=== PATIENT | female | born 1980 | race Caucasian/White ===

== ENCOUNTER 2020-07-29 03:11 | Emergency (ER) | payer BC, SELFPAY ==
[2020-07-29 03:13] VITALS: BP 116/75; PULSE 69; RESP 18; TEMP 36.8; O2SAT 99
[2020-07-29 03:41] LABS: Basophils Percent Auto 0.4 % (0.2-1.2); Eosinophils Absolute Auto 0.1 K/mm3 (0-0.3); Eosinophils Percent Auto 0.6 % (0-4.4); Hematocrit 38.3 % (37.0-47.0); Hemoglobin 12.9 g/dL (12.0-15.0); Immature Granulocyte Absolute 0.02 K/mm3 (0.00-0.031); Immature Granulocyte Percent A 0.2 % (0-0.5); Lymphocytes Absolute Auto 1.24 K/mm3 (0.9-3.2); Lymphocytes Percent Auto 15.1 % (18.3-44.2); Mean Corpuscular HGB Conc 33.7 g/dl (32-36); Mean Corpuscular Hemoglobin 29.9 pg (26-34); Mean Corpuscular Volume 88.9 fl (80-100); Mean Platelet Volume 9.9 fl (7.4-10.4); Monocytes Absolute Auto 0.6 K/mm3 (0.1-0.6); Monocytes Percent Auto 6.7 % (2.6-8.5); Neutrophils Absolute Auto 6.3 K/mm3 (1.3-6.7); Platelet Count Result 255 k/mm3 (150-375); Red Blood Count 4.31 M/mm3 (4.2-5.4); Red Cell Distribution Width 12.1 % (11.5-14.5); White Blood Count 8.2 K/mm3 (4.5-10.0)
[2020-07-29] MEDS: KETOROLAC 30 MG/ML VIAL (*BKC) IV PUSH (03:51)
[2020-07-29] MEDS: ONDANSETRON INJ 4 MG/2 ML VIAL IV PUSH (03:51)
[2020-07-29 03:59] LABS: Alanine Aminotransferase 16 U/L (4-35); Alkaline Phosphatase 52 U/L (38-126); Anion Gap 4 mmol/L (8-16); Aspartate Amino Transferase 24 U/L (14-36); Bilirubin,Total 0.2 mg/dL (0.2-1.3); Blood Urea Nitrogen 11 mg/dL (7-17); Calcium 8.7 mg/dL (8.4-10.2); Carbon Dioxide 30 mmol/L (22-30); Chloride 101 mmol/L (98-107); Estimated CRCL calculation 99 ml/min; Estimated Glomerular Filt Rate > 60; Glucose 138 mg/dL (65-105); Lipase 224 U/L (23-300); Potassium 3.9 mmol/L (3.4-5.0); Sodium 135 mmol/L (137-145)
[2020-07-29 03:59] LABS: Add Urine Microscopic? YES; Appearance Urine Clear (Clear); Bilirubin Urine Negative (Negative); Blood Urine 2+ (Negative); Color Urine Yellow (Yellow); Glucose Urine UA Negative (Negative); Ketones Urine Negative (Negative); Leukocyte Esterase Ur Negative LEU/UL (Negative); Mucus Urine Rare /lpf; Nitrate Urine Negative (Negative); Protein Urine Negative (Negative); RBC Urine >75 /hpf (0-2); Specific Grav Ur 1.018 (1.001-1.035); Squamous Epithelial Cell Urine Moderate /hpf (Few); Urobilinogen Urine Negative mg/dL (<2.0); WBC Urine 0-3 /hpf
--- NOTE | 2020-07-29 04:02 | ED.ABDPAIN ---
HPI - Abdominal Pain General Chief Complaint: Abdominal Pain Stated Complaint: ABD PAIN Time Seen by Provider: 07/29/20 03:13 Source: patient Mode of arrival: EMS Limitations: no limitations History of Present Illness HPI narrative: This patient is a 40 year old female who presents for evaluation of severe lower abdominal pain. She states she started her menstrual cycle yesterday morning. She has been taking ibuprofen and using a heating pain intermittent today. She reports approximately 3 hours ago her lower abdominal cramping worsened. She had 3 episodes of diarrhea tonight with her severe pain. She denies nausea, vomiting or fever. She denies any urinary symptoms. She states her periods have become heavy recently. She denies history of ovarian cyst or fibroids. She reports her pain is 8/10. Related Data Allergies Allergy/AdvReac Type Severity Reaction Status Date / Time iodine Allergy Unknown Rash Verified 02/13/18 09:07 Penicillins Allergy Unknown Rash Verified 02/13/18 09:07 phenazopyridine Allergy Unknown Verified 07/09/17 06:03 shellfish derived Allergy Unknown Verified 11/07/12 11:17 Sulfa (Sulfonamide Allergy Unknown Rash Verified 02/13/18 09:07 Antibiotics) Review of Systems Review of Systems: All systems reviewed & are unremarkable except as noted in HPI and below PMFSH Past Medical History Medical History (Updated 07/29/20 @ 04:36 by Gladis Lui MD) Patient denies medical problems Surgical History Surgical History (Updated 07/29/20 @ 04:37 by Gladis Lui MD) H/O section History of cholecystectomy Family History Family History (Updated 02/13/18 @ 09:13 by DOCTOR UNKNOWN) Mother Family history of mental disorder Depression Sibling Family history of mental disorder Father Hypertension Family history of diabetes mellitus in first degree relative Other Carcinoma of colon Family history of kidney disease Family history of type 2 diabetes mellitus Social History Social History Smoking status: Never smoker Second hand tobacco smoke exposure: No Smoking end date: 09/18/99 Alcohol intake: current Gender identity (if verbalized by the patient): Female Sexual Orientation (if Verbalized by the Patient): Straight or Heterosexual Exam Const: General: healthy appearing and alert Orientation/consciousness: patient oriented x3 Other: patient appears uncomfortable Eyes: EOM: EOMs intact bilaterally Resp: Effort & Inspection: normal respiratory effort and no retractions Auscultation: clear to auscultation bilaterally Cardio: Rate: regular rate Rhythm: regular rhythm Heart sounds: no murmurs GI: GI Palp: Yes Soft to palpation, Yes Tenderness to palpation present (GI) (suprapubic), No Guarding due to palpation present (GI), No Rigid due to palpation and No Hernia present Auscultation: normal bowel sounds : Other: deferred Back/Spine/Pelvis: Back: no CVA tenderness Skin: General skin exam: normal color Rashes: no rashes Neuro: General: patient oriented x3 and moves all extremities Course Reevaluation(s) Reevaluation #1: PAtient reports her pain is a 0 after being given the Toradol. I discussed labs values with patient. She has normal labs and her pain has resolved. She states she is ready for discharge home. She wants to deferred pelvic exam since her pain has resolved. Date: 07/29/20 Time: 04:21 Vital Signs Vital signs: Vital Signs Temperature 98.3 F 07/29/20 03:13 Pulse Rate 69 07/29/20 03:13 Respiratory Rate 18 07/29/20 03:13 Blood Pressure 116/75 07/29/20 03:13 Pulse Oximetry 99 07/29/20 03:13 Temperature 98.3 F 07/29/20 03:13 Pulse Rate 69 07/29/20 03:13 Respiratory Rate 18 07/29/20 03:13 Blood Pressure 116/75 07/29/20 03:13 Pulse Oximetry 99 07/29/20 03:13 MDM - Abdominal Pain Lab Data Result diagrams: 07/29/20 03:35 07/29/20 03:35 Labs:
[2020-07-29 04:35] VITALS: BP 124/83; PULSE 78; RESP 16; TEMP 36.8; O2SAT 100
== END 2020-07-29 04:36 | disposition home or self-care (01) ==
PROVIDERS: Emergency Provider General Practice; PCP Family Medicine
DX: N94.6 Dysmenorrhea, unspecified (principal)
CPT/HCPCS: 36415; 80053; 81001; 81025; 83690; 85025; 96374; 96375; 99284; J1885; J2405

== ENCOUNTER 2020-11-04 09:19 | Emergency (ER) | payer BC, SELFPAY ==
[2020-11-04] VITALS (7 sets, daily range): BP systolic 112–129; BP diastolic 66–77; PULSE 66–101; RESP 15–20; TEMP 37.1; O2SAT 97–100
--- NOTE | ~2020-11-04 | CT_ITS ---
EXAMINATION: CT abdomen pelvis w con DATE: 11/04/2020 10:12 INDICATION: Right lower quadrant abdominal pain TECHNIQUE: Computed tomography (CT) of the abdomen and pelvis was performed with 100 cc Omnipaque 350 intravenous contrast. Automated exposure control and iterative reconstruction technique were employe d. Exam dose: 474.61 mGy-cm total exam DLP. COMPARISON: 07/30/2016 CT abdomen 04/28/2016 CT abdomen pelvis FINDINGS: The lung bases are clear. Normal heart size. No pericardial or pleural effusion. Status post cholecystectomy. No bile duct or pancreatic duct dilatation. No hepatic, splenic, pancrea tic, and adrenal or renal space-occupying mass lesion. Approximately 4.7 mm nonobstructing lower pole left renal calculus. 3.2 cm left ovarian cyst. The uterus measures approximately 10 cm height and 5 cm anteroposterior dim ension. There is fluid in the endometrial cavity, which measures up to 8 mm AP dimension. The uterus and adnexal areas and urinary bladder otherwise are unremarkable. Normal appendix. No bowel obstruction, bowel wall thickening, pneumatosis or intraperitoneal free air . There is a prominent amount of fecal material in the colon especially on the left. Normal caliber of the abdominal aorta. No intraperitoneal or retroperitoneal or pelvic mass lesion or adenopathy or ascites. Small sliding hiatal hernia. Included skeletal structures are unremarkable. IMPRESSION: Normal appendix 4.7 mm nonobstructing lower pole left renal calculus Status post cholecystectomy 3.2 cm left ovarian cyst Reviewed, dictated and finalized at [facility]. Reviewed, dictated and finalized at [facility]. [employer]
[2020-11-04] MEDS: SODIUM CHLORIDE 0.9% IV 1,000 ML 999 ML IV CONT (09:52)
[2020-11-04] MEDS: FAMOTIDINE 20 MG/2 ML VIAL IV PUSH (09:53)
[2020-11-04 09:57] LABS: Basophils Percent Auto 0.2 % (0.2-1.2); Hematocrit 39.2 % (37.0-47.0); Hemoglobin 13.3 g/dL (12.0-15.0); Immature Granulocyte Absolute 0.04 K/mm3 (0.00-0.031); Immature Granulocyte Percent A 0.3 % (0-0.5); Lymphocytes Absolute Auto 1.17 K/mm3 (0.9-3.2); Lymphocytes Percent Auto 9.2 % (18.3-44.2); Mean Corpuscular HGB Conc 33.9 g/dl (32-36); Mean Corpuscular Hemoglobin 30.3 pg (26-34); Mean Corpuscular Volume 89.3 fl (80-100); Mean Platelet Volume 9.2 fl (7.4-10.4); Monocytes Absolute Auto 0.6 K/mm3 (0.1-0.6); Monocytes Percent Auto 4.9 % (2.6-8.5); Neutrophils Absolute Auto 10.9 K/mm3 (1.3-6.7); Neutrophils Percent Auto 85.4 % (45.5-73.1); Platelet Count Result 286 k/mm3 (150-375); Red Blood Count 4.39 M/mm3 (4.2-5.4); Red Cell Distribution Width 12.1 % (11.5-14.5); White Blood Count 12.7 K/mm3 (4.5-10.0)
[2020-11-04 09:58] LABS: Add Urine Microscopic? YES; Appearance Urine Clear (Clear); Bilirubin Urine Negative (Negative); Blood Urine 1+ (Negative); Color Urine Yellow (Yellow); Glucose Urine UA Negative (Negative); Ketones Urine Negative (Negative); Leukocyte Esterase Ur Negative LEU/UL (Negative); Mucus Urine Rare /lpf; Nitrate Urine Negative (Negative); Protein Urine 1+ mg/dL (Negative); Specific Grav Ur 1.023 (1.001-1.035); Squamous Epithelial Cell Urine Many /hpf (Few); WBC Urine 0-3 /hpf
[2020-11-04 10:08] LABS: Estimated CRCL calculation 86 ml/min; Estimated Glomerular Filt Rate > 60
[2020-11-04 10:10] LABS: Alanine Aminotransferase 19 U/L (4-35); Albumin Level 4.2 g/dL (3.5-5.1); Alkaline Phosphatase 53 U/L (38-126); Anion Gap 4 mmol/L (8-16); Aspartate Amino Transferase 25 U/L (14-36); Bilirubin,Total 0.5 mg/dL (0.2-1.3); Blood Urea Nitrogen 9 mg/dL (7-17); Calcium 8.7 mg/dL (8.4-10.2); Carbon Dioxide 28 mmol/L (22-30); Chloride 104 mmol/L (98-107); Estimated CRCL calculation 86 ml/min; Estimated Glomerular Filt Rate > 60; Glucose 111 mg/dL (65-105); Lipase 112 U/L (23-300); Potassium 4.1 mmol/L (3.4-5.0); Sodium 136 mmol/L (137-145)
--- NOTE | 2020-11-04 12:05 | ED.GENADULT ---
HPI - General Adult General Chief complaint: Abdominal Pain Stated complaint: bladder spasms, abd pain Time Seen by Provider: 11/04/20 09:30 Source: patient Mode of arrival: ambulatory Limitations: no limitations History of Present Illness HPI narrative: Patient is a 40-year-old female who presents with lower abdominal pain that began at 2 AM described as an intense pain localized to the lower abdomen midline may be she might have a urinary tract infection also notes history of diverticulosis and kidney stones. Patient denies any fever chills nausea vomiting. Patient denies vaginal discharge bleeding or hematuria. On arrival patient in no distress patient is not taken anything for her symptoms Related Data Allergies Allergy/AdvReac Type Severity Reaction Status Date / Time Penicillins Allergy Unknown Rash Verified 02/13/18 09:07 phenazopyridine Allergy Unknown Unknown Verified 11/04/20 10:39 shellfish derived Allergy Unknown Unknown Verified 11/04/20 10:39 Sulfa (Sulfonamide Allergy Unknown Rash Verified 02/13/18 09:07 Antibiotics) Review of Systems Review of Systems: All systems reviewed & are unremarkable except as noted in HPI and below PMFSH Past Medical History Medical History Patient denies medical problems Surgical History Surgical History H/O section History of cholecystectomy Family History Family History (Updated 02/13/18 @ 09:13 by DOCTOR UNKNOWN) Mother Family history of mental disorder Depression Sibling Family history of mental disorder Father Hypertension Family history of diabetes mellitus in first degree relative Other Carcinoma of colon Family history of kidney disease Family history of type 2 diabetes mellitus Social History Social History Smoking status: Never smoker Second hand tobacco smoke exposure: No Smoking end date: 09/18/99 Alcohol intake: current Gender identity (if verbalized by the patient): Female Exam Narrative: Exam Narrative: GENERAL: Well-appearing, well-nourished, and in no acute distress. HEAD: Normocephalic, atraumatic. EYES: PERRLA and EOMI. ENT: Nares clear, no rhinorrhea or epistaxis. Mucous membranes moist. CHEST: Clear to auscultation. No respiratory distress. No wheezes rales or rhonchi HEART: Regular rate and rhythm. No murmur heard. Normal peripheral pulses. ABDOMEN: Soft, suprapubic and right lower quadrant tenderness with voluntary guarding, nondistended. EXTREMITIES: Normal range of motion. No edema. SKIN: Warm, dry, no rash. NEURO: No focal deficits. Alert and oriented x3. Cranial nerves II through XII grossly intact PSYCH: Normal mood and affect. Course Course Emergency Course: Patient in the room at this time in no distress has been hydrated given medications with some improvement patient advised to follow with her straight edger and primary care for further evaluation she was explained the findings patient agrees to follow-up as directed and was also given plans to return if symptoms worsen or concerns patient agrees with this Vital Signs Vital signs: Vital Signs Temperature 98.7 F 11/04/20 09:24 Pulse Rate 101 H 11/04/20 09:24 Respiratory Rate 20 11/04/20 09:24 Blood Pressure 117/71 11/04/20 09:24 Pulse Oximetry 100 11/04/20 09:24 Temperature 98.7 F 11/04/20 09:24 Pulse Rate 75 11/04/20 10:53 Respiratory Rate 15 11/04/20 10:53 Blood Pressure 112/66 11/04/20 10:53 Pulse Oximetry 100 11/04/20 10:53 Medical Decision Making [facility] Narrative Medical decision making narrative: Patient presented with lower abdominal pain potential for ovarian cyst as the etiology no other high risk changes in the blood work or imaging leukocytosis likely secondary to stress reaction patient will follow with her straight edger and pr
[2020-11-04] MEDS: KETOROLAC 30 MG/ML VIAL (*BKC) IV PUSH (12:28)
== END 2020-11-04 12:45 | disposition home or self-care (01) ==
PROVIDERS: Emergency Medicine Emergency Medical Services; Emergency Provider Emergency Medicine; PCP Family Medicine
DX: N83.202 Unspecified ovarian cyst, left side (principal); N20.0 Calculus of kidney
CPT/HCPCS: 36415; 74177; 80053; 81001; 81025; 83690; 85025; 96365; 96375; 99284; J0131; J1885; J7030; Q9967

== ENCOUNTER → 2021-01-11 11:58 | Outpatient (CLI) | payer BC, SELFPAY ==
--- NOTE | ~2021-01-11 | US_ITS ---
EXAMINATION: US transvaginal DATE: 01/11/2021 12:20 INDICATION: Follow-up cyst seen on CT. Comparison:CT dated 11/04/2020 TECHNIQUE: Multiple transabdominal and endovaginal sonographic images of the pelvis performed. FINDINGS: The uterus measures 8 x 4.2 x 4.6 cm. The endometrial complex measures 4 mm. The right ovary measures 2.6 x 1.4 x 1.4 cm and the left ovary measures 2.5 x 1.1 x 1.2 cm. There is a 2.1 cm right ovarian cyst. There are small follicles in each ovary. Normal doppler signal in both o varies. There is no free fluid in the pelvis. There are no abnormal masses seen on either side. IMPRESSION: 1. Right ovarian cyst measuring 2.1 cm. Reviewed, dictated and finalized at [facility].
== END ==
PROVIDERS: Visit Provider Obstetrics & Gynecology Gynecology
DX: N83.201 Unspecified ovarian cyst, right side (principal)
CPT/HCPCS: 76830

== ENCOUNTER → 2021-02-05 13:37 | Outpatient (CLI) | payer BC, SELFPAY ==
--- NOTE | ~2021-02-05 | MM_ITS ---
EXAMINATION: MM screening jose BI w santhosh HISTORY: Screening TECHNIQUE: Craniocaudal and mediolateral oblique 3-D tomosynthesis images were obtained and synthetic 2-D images were generated. CAD analysis was submitted and interpreted. COMPARISON: No prior mammogram is available for comparison at this institution. BREAST PARENCHYMAL COMPOSITION: The breasts are heterogeneously dense, which may obscure small masses . FINDINGS: There is no evidence of suspicious mass, calcification, or architectural distortion to sugg est malignancy in either breast. There has been no suspicious interval change. IMPRESSION: 1. No mammographic evidence of malignancy. 2. Recommend routine screening mammography in one year. BI-RADS Category 1: Negative Reviewed, dictated and finalized at [facility].
== END ==
PROVIDERS: PCP Family Medicine; Visit Provider Nurse Practitioner
DX: Z12.31 Encounter for screening mammogram for malignant neoplasm of breast (principal)
CPT/HCPCS: 77063; 77067

== ENCOUNTER 2022-02-01 06:47 | Emergency (ER) | payer BC, SELFPAY ==
[2022-02-01 06:48] VITALS: BP 117/80; PULSE 77; RESP 18; TEMP 36.3; O2SAT 100
[2022-02-01 07:10] LABS: Add Urine Microscopic? YES; Appearance Urine Cloudy (Clear); Bilirubin Urine 1+ (Negative); Blood Urine 3+ (Negative); Color Urine Orange (Yellow); Glucose Urine UA Negative (Negative); Ketones Urine Trace mg/dL (Negative); Leukocyte Esterase Ur 2+ LEU/UL (Negative); Nitrate Urine Negative (Negative); Protein Urine 2+ mg/dL (Negative); Specific Grav Ur >= 1.030 (1.001-1.035)
[2022-02-01 07:15] LABS: RBC Urine >75 /hpf (0-2); Squamous Epithelial Cell Urine Few /hpf (Few); WBC Urine >75 /hpf
--- NOTE | 2022-02-01 08:02 | ED.FEMALEGU ---
HPI - Female Genitourinary General Chief complaint: Urogenital-Female Stated complaint: Bladder infection Time Seen by Provider: 02/01/22 06:57 History of Present Illness HPI Narrative: Patient is a 41-year-old female who presents ER with concerns for UTI. Reports she woke up this morning having urinary frequency and urgency. She is having burning urination as well as hematuria. No flank pain. No fevers or chills or sweats. Mild discomfort. Related Data Home Medications Medication Instructions Recorded Confirmed norethindrone 1 mg-ethinyl 1 tablet PO DAILY 12/07/20 02/04/21 estradiol 20 mcg (24)-iron 75 mg (4) tablet Allergies Allergy/AdvReac Type Severity Reaction Status Date / Time Penicillins Allergy Unknown Rash Verified 02/01/22 07:00 phenazopyridine Allergy Unknown Unknown Verified 02/04/21 10:05 shellfish derived Allergy Unknown Unknown Verified 02/01/22 07:00 Sulfa (Sulfonamide Allergy Unknown Rash Verified 02/01/22 07:00 Antibiotics) Review of Systems Constitutional: Constitutional: Denies chills Comments: No fevers Gastrointestinal: Gastrointestinal: Reports abdominal pain (Suprapubic discomfort), Denies nausea and Denies vomiting Genitourinary: Genitourinary: Reports hematuria, Reports nocturia, Reports dysuria and Denies flank pain PMFSH Past Medical History Medical History Patient denies medical problems Surgical History Surgical History H/O section History of cholecystectomy Family History Family History Mother Family history of mental disorder Depression Sibling Family history of mental disorder Father Hypertension Family history of diabetes mellitus in first degree relative Other Carcinoma of colon Family history of kidney disease Family history of type 2 diabetes mellitus Social History Social History (Updated 02/04/21 @ 10:07 by Aleksandra Candelaria CMA) Smoking status: Never smoker Second hand tobacco smoke exposure: No Smoking end date: 09/18/99 Alcohol intake: current Gender identity (if verbalized by the patient): Female Sexual Orientation (if Verbalized by the Patient): Straight or Heterosexual Spiritual care concerns: No Agree to blood products: Yes Exam Narrative: GENERAL: Well-appearing, well-nourished, and in no acute distress. HEAD: Normocephalic, atraumatic. CHEST: Clear to auscultation. No respiratory distress. HEART: Regular rate and rhythm. Normal peripheral pulses. ABDOMEN: Soft, nontender, nondistended. EXTREMITIES: Normal range of motion. No edema. NEURO: Alert and oriented x3. PSYCH: Normal mood and affect. Course Course Emergency Course: Discharge home with antibiotics. Vital Signs Vital signs: Vital Signs Temperature 97.4 F L 02/01/22 06:48 Pulse Rate 77 02/01/22 06:48 Respiratory Rate 18 02/01/22 06:48 Blood Pressure 117/80 02/01/22 06:48 Pulse Oximetry 100 02/01/22 06:48 Temperature 97.4 F L 02/01/22 06:48 Pulse Rate 77 02/01/22 06:48 Respiratory Rate 18 02/01/22 06:48 Blood Pressure 117/80 02/01/22 06:48 Pulse Oximetry 100 02/01/22 06:48 MDM - Female Genitourinary Lab Data Labs: Lab Results 02/01/22 Range/Units 07:00 Urine Color Jackson H (Yellow) Urine Appearance Cloudy H (Clear) Urine pH 6.0 (5.0-9.0) Ur Specific Confluence >= 1.030 (1.001-1.035) Urine Protein 2+ H (Negative) mg/dL Urine Glucose (UA) Negative (Negative) mg/dL Urine Ketones Trace (Negative) mg/dL Ur Blood (Man) 3+ H (Negative) Urine Nitrate Negative (Negative) Urine Bilirubin 1+ H (Negative) Urine Urobilinogen 1.0 (<2.0) mg/dL Leukocyte Esterase Rfl 2+ H (Negative) LIZBET/UL Urine RBC >75 H (0-2) /hpf Urine WBC >75 H /hpf Ur Squamous Epith Cells Few (Few)
== END 2022-02-01 08:42 | disposition home or self-care (01) ==
PROVIDERS: General Practice; Emergency Provider Emergency Medicine; PCP Family Medicine
DX: N39.0 Urinary tract infection, site not specified (principal)
CPT/HCPCS: 81001; 81025; 87077; 87086; 87088; 99283

== ENCOUNTER → 2022-02-21 13:22 | Outpatient (CLI) | payer BC, SELFPAY ==
--- NOTE | ~2022-02-21 | MM_ITS ---
EXAMINATION: MM screening jose BI w santhosh HISTORY: Screening mammogram TECHNIQUE: Craniocaudal and mediolateral oblique 3-D tomosynthesis images were obtained and synthetic 2-D images were generated. CAD analysis was submitted and interpreted. COMPARISON: 02/05/2021 BREAST PARENCHYMAL COMPOSITION: The breasts are heterogeneously dense, which may obscure small masses . FINDINGS: There is no suspicious mass, calcification, or architectural distortion to suggest malignan cy in either breast. There has been no suspicious interval change. IMPRESSION: 1. No mammographic evidence of malignancy. 2. Recommend routine screening mammography in one year. BI-RADS Category 1: Negative Reviewed, dictated and finalized at location [facility].
== END ==
PROVIDERS: PCP Family Medicine; Visit Provider Nurse Practitioner
DX: Z12.31 Encounter for screening mammogram for malignant neoplasm of breast (principal)
CPT/HCPCS: 77063; 77067

== ENCOUNTER → 2023-07-19 15:28 | Outpatient (CLI) | payer BC, OTHER, SELFPAY ==
--- NOTE | ~2023-07-19 | MM_ITS ---
EXAMINATION: MM screening jose BI w santhosh HISTORY: Screening mammogram TECHNIQUE: Craniocaudal and mediolateral oblique 3-D tomosynthesis images were obtained and synthetic 2-D images were generated. Bilateral rotated lateral CC views. CAD analysis was submitted and interp reted. COMPARISON: 02/21/2022, 02/05/2021 bilateral screening mammogram examinations BREAST PARENCHYMAL COMPOSITION: The breasts are heterogeneously dense, which may obscure small masses . FINDINGS: Stable fibroglandular asymmetry. There is no evidence of suspicious mass, calcification, or architectural distortion to suggest malignancy in either breast. There has been no suspicious interv al change. IMPRESSION: 1. No mammographic evidence of malignancy. 2. Recommend routine screening mammography in one year. BI-RADS Category 1: Negative Reviewed, dictated and finalized at location [facility].
== END ==
PROVIDERS: PCP Family Medicine; Visit Provider Obstetrics & Gynecology Gynecology
DX: Z12.31 Encounter for screening mammogram for malignant neoplasm of breast (principal)
CPT/HCPCS: 77063; 77067

== ENCOUNTER 2024-03-11 01:33 | Emergency (ER) | payer BC, OTHER, SELFPAY ==
[2024-03-11] VITALS (8 sets, daily range): BP systolic 116–135; BP diastolic 68–81; PULSE 71–77; RESP 17–20; TEMP 36.8; O2SAT 97–100
--- NOTE | ~2024-03-11 | CT_ITS ---
Non-contrast CT scan of the Abdomen and Pelvis Clinical indication: Flank pain Technique: 2.5 mm axial scans were obtained through the abdomen and pelvis without intravenous or or al contrast. Dose reduction technique was used on this scan by utilizing automated exposure control a nd iterative reconstruction technique. The dose-length product (DLP) was 528.30 mGy-cm. COMPARISON: 11/04/2020 Findings: Images through the lung bases reveal no abnormalities. 4 mm proximal left ureteral stone is present, with mild left hydronephrosis. No right renal or right ureteral stone. No right hydronephrosis. The liver, spleen, pancreas, and adrenals appear normal. Cholecystectomy clips are present. There is no aortic aneurysm. There is no evidence of bowel obstruction. Normal appendix. Images through the pelvis were performed. There is no evidence of ascites or lymphadenopathy. Urinary bladder unremarkable. No pelvic mass seen. No ascites. Impression: 4 mm proximal left ureteral stone with mild left hydronephrosis. Reviewed, dictated and finalized at [facility]. Impression: 4 mm proximal left ureteral stone with mild left hydronephrosis.
[2024-03-11] MEDS: SODIUM CHLORIDE 0.9% IV 2,000 ML 999 ML IV CONT (02:13)
[2024-03-11] MEDS: ACETAMINOPHEN 500 MG TABLET 1000 MG PO (02:32)
[2024-03-11 02:33] LABS: Basophils Percent Auto 0.4 % (0.2-1.2); Eosinophils Absolute Auto 0.1 K/mm3 (0-0.3); Eosinophils Percent Auto 0.7 % (0-4.4); Hematocrit 40.1 % (37.0-47.0); Hemoglobin 13.6 g/dL (12.0-15.0); Immature Granulocyte Absolute 0.01 K/mm3 (0.00-0.031); Immature Granulocyte Percent A 0.1 % (0-0.5); Lymphocytes Absolute Auto 1.64 K/mm3 (0.9-3.2); Lymphocytes Percent Auto 19.9 % (18.3-44.2); Mean Corpuscular HGB Conc 33.9 g/dl (32-36); Mean Corpuscular Hemoglobin 29.8 pg (26-34); Mean Corpuscular Volume 87.7 fl (80-100); Mean Platelet Volume 9.6 fl (7.4-10.4); Monocytes Absolute Auto 0.5 K/mm3 (0.1-0.6); Monocytes Percent Auto 6.3 % (2.6-8.5); Neutrophils Percent Auto 72.6 % (45.5-73.1); Platelet Count Result 265 k/mm3 (150-375); Red Blood Count 4.57 M/mm3 (4.2-5.4); White Blood Count 8.2 K/mm3 (4.5-10.0)
[2024-03-11 02:35] LABS: Appearance Urine Clear (Clear); Bacteria Urine None Seen /hpf; Bilirubin Urine Negative (Negative); Blood Urine 2+ (Negative); Color Urine Yellow (Yellow); Glucose Urine UA Negative (Negative); Ketones Urine 1+ mg/dL (Negative); Leukocyte Esterase Ur Negative LEU/UL (Negative); Nitrate Urine Negative (Negative); Non Pathogenic Casts 0-2; Protein Urine Negative (Negative); Specific Grav Ur 1.013 (1.001-1.035); Squamous Epithelial Cell Urine Occasional /hpf (Few); Urobilinogen Urine 0.2 mg/dL (<2.0); WBC Urine 0-5 /hpf (0-3)
[2024-03-11 02:36] LABS: Add Urine Microscopic? YES
[2024-03-11 02:45] LABS: Lipase 177 U/L (23-300)
[2024-03-11 02:46] LABS: Alanine Aminotransferase 19 U/L (6-35); Albumin Level 4.1 g/dL (3.5-5.1); Alkaline Phosphatase 60 U/L (38-126); Anion Gap 9 mmol/L (4-12); Aspartate Amino Transferase 21 U/L (14-36); Bilirubin,Total 0.5 mg/dL (0.2-1.3); Blood Urea Nitrogen 13 mg/dL (7-17); Calcium 8.7 mg/dL (8.4-10.2); Carbon Dioxide 20 mmol/L (22-30); Chloride 107 mmol/L (98-107); Estimated CRCL calculation 98 ml/min; Estimated Glomerular Filt Rate > 60; Glucose 115 mg/dL (65-110); Potassium 3.9 mmol/L (3.4-5.0); Sodium 136 mmol/L (137-145)
--- NOTE | 2024-03-11 03:00 | ED.GENADULT ---
HPI - General Adult General Chief complaint: Urogenital-Female Stated complaint: L flank pain Time Seen by Provider: 03/11/24 02:00 History of Present Illness HPI narrative: This is a 43-year-old female presenting with left-sided flank pain. Pain started earlier today. It wraps around into her left lower quadrant. It feels similar to kidney stone she has had in the past. Patient notes increased urinary urgency and frequency but no dysuria. She saw her primary care physician who prescribed her antibiotics for a possible UTI but that has not been helping. Patient denies fevers or chills. She does have some nausea and vomiting. Related Data Home Medications Medication Instructions Recorded Confirmed norethindrone 1 mg-ethinyl 1 tablet PO DAILY 12/07/20 03/07/24 estradiol 20 mcg (24)-iron 75 mg (4) tablet (Aurovela 24 Fe) Allergies Allergy/AdvReac Type Severity Reaction Status Date / Time Penicillins Allergy Unknown Rash Verified 03/11/24 01:56 phenazopyridine Allergy Unknown Unknown Verified 03/11/24 01:56 shellfish derived Allergy Unknown Unknown Verified 03/11/24 01:56 Sulfa (Sulfonamide Allergy Unknown Rash Verified 03/11/24 01:56 Antibiotics) [facility] Past Medical History Medical History Patient denies medical problems Surgical History Surgical History H/O section History of cholecystectomy Family History Family History Mother Family history of mental disorder Depression Sibling Family history of mental disorder Father Hypertension Family history of diabetes mellitus in first degree relative Other Carcinoma of colon Family history of kidney disease Family history of type 2 diabetes mellitus Social History Social History Smoking status: Never smoker Second hand tobacco smoke exposure: No Smoking end date: 09/18/99 Alcohol intake: current Substance use: never Substance use type: does not use Lack of Transportation: No Lack of Food: Never True Current Housing: I Have Housing Concerned About Future Housing: No Difficulty Paying Gas/Electric Bills: No Difficulty Paying for Meds: No Currently Unemployed: No Education: Decline to Answer Difficulty w/ Childcare or Family Care: No Gender identity (if verbalized by the patient): Female Spiritual care concerns: No Agree to blood products: Yes Exam Narrative: APPEARANCE: No apparent distress. Head: atraumatic. EYES: EOMI, NOSE: Atraumatic NECK: Trachea midline RESPIRATORY: No increased rate of breathing CARDIOVASCULAR: RRR, ABDOMINAL: Left CVA tenderness, abdomen soft nontender no guarding or rebound MUSCULOSKELETAl: No obvious deformities NEURO: Alert. Moving 4/4 extremities SKIN:: Warm, dry. Normal color PSYCHIATRIC: Normal affect Course Vital Signs Vital signs: Vital Signs Temperature 98.3 F 03/11/24 01:51 Pulse Rate 77 03/11/24 01:51 Respiratory Rate 20 03/11/24 01:51 Blood Pressure 135/70 03/11/24 01:51 Pulse Oximetry 100 03/11/24 01:51 Oxygen Delivery Room Air 03/11/24 01:51 Temperature 98.3 F 03/11/24 01:51 Pulse Rate 71 03/11/24 04:44 Respiratory Rate 17 03/11/24 04:44 Blood Pressure 116/68 03/11/24 04:44 Pulse Oximetry 97 03/11/24 04:44 Oxygen Delivery Room Air 03/11/24 01:51 Medical Decision Making MDM Narrative Medical decision making narrative: -Course: 43-year-old female presenting with left-sided flank pain. patient declined antiemetics and opiate pain medication. CT showed a 5 mm stone in the proximal ureter. Normal white count. Urine not indicative of infection. Pain was controlled in the emergency department. Patient is very hesitant to take oral medications, Specifically opiate margie
[2024-03-11] MEDS: KETOROLAC 15 MG/ML VIAL (*BKC) IV PUSH (03:04)
== END 2024-03-11 05:11 | disposition home or self-care (01) ==
PROVIDERS: Emergency Provider Emergency Medicine; PCP Family Medicine
DX: N20.0 Calculus of kidney (principal)
CPT/HCPCS: 36415; 74176; 80053; 81001; 81025; 83690; 85025; 96361; 96374; 99284; A9270; J1885; J7030

== ENCOUNTER 2024-10-24 16:13 | Outpatient (CLI) | payer OTHER, BC, SELFPAY ==
--- NOTE | ~2024-10-24 | MM_ITS ---
EXAMINATION: MM screening jose BI w santhosh HISTORY: Screening mammogram TECHNIQUE: Craniocaudal and mediolateral oblique 3-D tomosynthesis images were obtained and synthetic 2-D images were generated. CAD analysis was submitted and interpreted. COMPARISON: 07/19/2023, 02/21/2022, 02/05/2021 BREAST PARENCHYMAL COMPOSITION:Dense: The breasts are heterogeneously dense, which may obscure small masses. FINDINGS: No suspicious mass, calcification, or architectural distortion are identified in either al ast to suggest malignancy. There has been no suspicious interval change. IMPRESSION: No mammographic evidence of malignancy. Recommend routine screening mammography in one year. BI-RADS Category 1: Negative Reviewed, dictated and finalized at location . [employer]
== END 2024-10-24 16:14 | disposition home or self-care (01) ==
PROVIDERS: PCP Family Medicine; Visit Provider Nurse Practitioner
DX: Z12.31 Encounter for screening mammogram for malignant neoplasm of breast (principal)
CPT/HCPCS: 77063; 77067